=== PATIENT | female | born 1955 | race Caucasian/White ===

== ENCOUNTER 2024-08-10 23:14 | Emergency (ER) | payer OTHER ==
[2024-08-10 23:28] VITALS: BP 142/93; PULSE 61; RESP 18; TEMP 97.5; BMI 30.8
[2024-08-11] MEDS ORDERED: DEXAMETHASONE 4 MG TABLET (FP) ONE (00:29)
[2024-08-11] MEDS: DEXAMETHASONE 4 MG TABLET (FP) PO ONE (00:38)
[2024-08-11 01:08] LABS: POTASSIUM 4.5 mmol/L (3.5-5.1)
[2024-08-11 01:09] LABS: BASO % 0.3 % (0-2.0); CALCIUM 9.7 mg/dL (8.5-10.1); EOS % 2.3 % (0-4.5); HEMATOCRIT 40.3 % (32.4-45.2); HEMOGLOBIN 12.9 GM/dL (10.7-15.3); LYMPH % 17.7 % (8-40); MCH 28.8 pg (25.7-33.7); MEAN PLT VOLUME 8.7 fl (7.5-11.1); MONO % 8.3 % (3.8-10.2); NEUT % 71.4 % (42.8-82.8); PLATELET COUNT 263 10^3/uL (134-434); RBC 4.47 M/mm3 (3.60-5.2); RDW 14.7 % (11.6-15.6); WHITE BLOOD COUNT 7.2 K/mm3 (4.0-10.0)
[2024-08-11 01:10] LABS: ALBUMIN 3.6 g/dl (3.4-5.0)
[2024-08-11 01:13] LABS: CREATININE 0.9 mg/dL (0.55-1.3)
[2024-08-11 01:15] LABS: BILIRUBIN,TOTAL 0.5 mg/dL (0.2-1); TOT PROT 7.1 g/dl (6.4-8.2)
[2024-08-11 01:34] LABS: ERYTHROCYTE SEDIMENTATION RATE 37 mm/hr (0-30)
== END 2024-08-11 02:07 | disposition home or self-care (01) ==
LOC: JER 23:14
DX: R51.9 Headache, unspecified (principal); G47.00 Insomnia, unspecified
CPT/HCPCS: 36415; 80053; 85025; 85651; 86140; 99283-25